=== PATIENT | female | born 1930 | race Caucasian/White ===

== ENCOUNTER → 2016-09-06 | Outpatient (CLI) | payer MEDICARE ==
[~2016-09-06] MED LIST: ACTONEL PO; ALPRAZOLAM PO; ALPRAZOLAM0.25 MG PO; AMILORIDE HCL-H1 TAB PO; AMLODIPINE BESY10 MG PO; ASPIRIN PO; ASPIRIN81 M1 PO; ASPIRIN81 MG PO; AVELOX400 MG PO; CALCIUM1 TAB.CHEW PO; CARDURA PO; CARDURA2 MG PO; CHEWABLE ASPIRI81 MG PO; CLEOCIN HCL300 M1 PO; COZAAR25 MG PO; CRESTOR PO; CRESTOR10 MG PO; DARVOCET-N 1001 TA1 DOB; DARVOCET-N 1001 TAB PO; FERRO-TIME325 MG PO; FERROUS SULFATE PO; HCTZ PO; HYDRALAZINE HCL25 MG PO; HYDRALAZINE HCL50 MG PO; HYZAAR 50-12.51 TA1 PO; IRON1 TA1 PO; IRON1 TAB PO; IRON325 ( 651 PO; K-DUR20 ME1 PO; KROGER PHARMACY; LOPRESSOR PO; MACROBID100 MG DOB; METOPROLOL TAR25 MG PO; METOPROLOL TART25 MG PO; MOEXIPRIL HCL15 MG PO; NEXIUM PO; NORVASC PO; NORVASC10 MG PO; PAIN RELIEF325 MG PO; PREVACID PO; PREVACID SOLUTA30 MG PO; TOPROL XL PO; VANCOCIN HCL250 MG PO; ZITHROMAX PO; ZOFRAN8 MG PO
--- NOTE | ~2016-09-06 | US77 ---
[facility] A Service of [facility] & [facility] RADIOLOGY TEXT RESULTS PATIENT: ALVINO KEMP LOCATION: [facility] : 34 UNIT #: [id number] AGE: [address]: Sierra Oreilly MD SEX: F ORDER DR: [id number] [facility] [address] [place], [place] [address] [id number] O MR#: [id number] Acc #: [id number] NAME: ALVINO KEMP : 1930 SEX: F STUDY DATE/TIME: 09/06/2016 12:40 UNIT: [facility] ROOM: STUDY DESCRIPTION: US Kidney Bilateral Complete Attending Physician: Jeovany Oreilly M.D. Referring Physician: Jeovany Oreilly M.D. Ordering Physician: Jeovany Oreilly M.D. Primary Care Physician: Kvng Greenberg M.D. MEDICAL IMAGING REPORT This report is preliminary unless electronic signature is present EXAM Renal ultrasound complete 09/06/2016. HISTORY Chronic kidney disease stage III. Right flank pain for 1 year. Left nephrectomy for stones in 1961. FINDINGS The right kidney measured 9.3 cm in longitudinal dimensions. There is no evidence of hydronephrosis or nephrolithiasis. No cystic or solid mass lesions were seen on the right kidney. Slight increase in right renal cortical echogenicity characteristic of medical renal disease. The left kidney is surgically absent, as per patient history. No abnormality is seen in the left renal fossa. The bladder is empty for the exam and, therefore, poorly visualized. IMPRESSION 1. 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 2. Increased right renal cortical echogenicity characteristic of medical renal disease. No evidence of hydronephrosis. 3. The bladder was empty for the exam and, therefore, poorly visualized. Dictated by... Dirk Michelle M.D. THIS IS AN ELECTRONICALLY VERIFIED REPORT Dirk Michelle M.D. at 09/07/2016 9:24 AM GERI/rose TD: 09/06/2016 19:12 JOB #: [id number] [facility] A Service of [facility] & [facility] RADIOLOGY TEXT RESULTS PATIENT: ALVINO KEMP LOCATION: [facility] #: [id number] : 34 UNIT #: [id number] AGE: [address]: Sierra Oreilly MD SEX: F ORDER DR: MEDICAL IMAGING REPORT Page 1 of 1 COPY
== END | disposition home or self-care (01) ==
LOC: CGUS 12:17
DX: N18.3 Chronic kidney disease, stage 3 (moderate) (principal); Z90.5 Acquired absence of kidney
CPT/HCPCS: 76770

== ENCOUNTER → 2016-11-16 | Outpatient (CLI) | payer MEDICARE ==
--- NOTE | ~2016-11-16 | US78 ---
[facility] A Service of [facility] RADIOLOGY TEXT RESULTS PATIENT: ALVINO KEMP LOCATION: [facility] : 34 UNIT #: [id number] AGE: [address]: Sierra Oreilly MD SEX: F ORDER DR: [id number] [facility] [address] [place], [place] [address] [id number] O MR#: [id number] Acc #: [id number] NAME: ALVINO KEMP : 1930 SEX: F STUDY DATE/TIME: 11/16/2016 13:35 UNIT: [facility] ROOM: STUDY DESCRIPTION: US Kidney Duplex Complete Attending Physician: Jeovany Oreilly M.D. Referring Physician: Jeovany Oreilly M.D. Ordering Physician: Jeovany Oreilly M.D. Primary Care Physician: Kvng Greenberg M.D. MEDICAL IMAGING REPORT This report is preliminary unless electronic signature is present EXAMINATION Renal artery Doppler ultrasound. DATE 11/16/2016 HISTORY Chronic kidney disease stage 3. Essential hypertension. History of left nephrectomy. COMPARISON None. FINDINGS The abdominal aorta is of normal caliber measuring 1.3 cm in its midsegment. The abdominal aorta demonstrates normal color and spectral Doppler flow. Peak systolic velocity within the mid abdominal aorta is 154.2 cm/sec. The proximal right renal artery segment demonstrates elevated peak systolic velocity of 314.1 cm/sec. The mid right renal artery peak systolic velocity 261.4 cm/sec. The distal right renal artery segment 177.4 cm/sec. Right renal to aortic ratio is 2.0. Normal spectral Doppler waveforms are demonstrated without turbulence or parvus et tardus waveform. Intraparenchymal resistive indices vary between 0.74 to 0.87. Constellation of findings suggest a hemodynamically significant stenosis by ultrasound criteria. Right renal vein is patent. Left renal artery and vein are surgically absent. 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 [facility] A Service of [facility] RADIOLOGY TEXT RESULTS PATIENT: ALVINO KEMP LOCATION: [facility] : 34 UNIT #: [id number] AGE: [address]: Sierra Oreilly MD SEX: F ORDER DR: Right kidney measures 8.5 cm in length with increased cortical echogenicity consistent with a history of chronic medical renal disease. No hydronephrosis. IMPRESSION 1. 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 If further more limited evaluation is desired, CTA or MRA may be considered (if the patient's renal function allows). 2. Right renal vein is patent. 3. 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 Dictated by... Shelbi Espinoza M.D. THIS IS AN ELECTRONICALLY VERIFIED REPORT Shelbi Espinoza M.D. at 11/18/2016 8:54 AM BLAKE/maryana TD: 11/17/2016 19:05 JOB #: [id number] MEDICAL IMAGING REPORT Page 1 of 1 COPY
== END | disposition home or self-care (01) ==
LOC: CNIV 13:07
DX: I12.9 Hypertensive chronic kidney disease with stage 1 through stage 4 chronic kidney disease, or unspecified chronic kidney disease (principal); N18.3 Chronic kidney disease, stage 3 (moderate); I70.1 Atherosclerosis of renal artery; Z90.5 Acquired absence of kidney
CPT/HCPCS: 93975